=== PATIENT | male | born 1950 | race African-American/Black ===

== ENCOUNTER 2020-01-25 16:37 | Inpatient (IN) | payer MEDICARE, MEDICAID ==
[~2020-01-25] VITALS: Ht 185.4 cm; Wt 60.3 kg
--- NOTE | 2020-01-25 16:59 | NUR ---
ED Nurse Note: Patient was wheeled in to ER from the car, c/o lower back and neck pain, stated fell out of his wheelchair today. Pt is AOx4, consistency screaming in pain, VSS, on RA, afebrile on triage. Placed on bed, will continue to monitor.
--- NOTE | 2020-01-25 17:00 | NUR ---
ED Nurse Note: cervical collar in placed.
[2020-01-25] MEDS ORDERED: Morphine Sulfate 2mg/ml Inj(IV/IM USE ONLY) IM ONE (17:15)
--- NOTE | 2020-01-25 17:22 | NUR ---
ED Nurse Note: Pt was taken to CT on stable condition.
[2020-01-25 17:23] VITALS: BP 156/67
--- NOTE | 2020-01-25 17:48 | Diagnostic Imaging Report ---
EXAM: CT Head Without Intravenous Contrast CLINICAL HISTORY: FALL TECHNIQUE: Axial computed tomography images of the head/brain without intravenous contrast. CTDI is 53.4 mGy and DLP is 950.7 mGy-cm. One or more of the following dose reduction techniques were used: automated exposure control, adjustment of the mA and/or kV according to patient size, use of iterative reconstruction technique. COMPARISON: No relevant prior studies available. FINDINGS: Brain: Parenchymal volume loss. Nonspecific white matter hypoattenuation likely secondary to chronic microvascular ischemia. Cerebrovascular ASVD. No hemorrhage. Ventricles: Unremarkable. No ventriculomegaly. Bones/joints: Unremarkable. No acute fracture. Soft tissues: Unremarkable. Sinuses: Unremarkable as visualized. No acute sinusitis. Mastoid air cells: Unremarkable as visualized. No mastoid effusion. IMPRESSION: 1. No acute intracranial abnormality. 2. Moderate chronic senescent findings above.
--- NOTE | 2020-01-25 17:51 | Diagnostic Imaging Report ---
EXAM: CT Cervical Spine Without Intravenous Contrast CLINICAL HISTORY: FALL TECHNIQUE: Axial computed tomography images of the cervical spine without intravenous contrast. CTDI is 19.8 mGy and DLP is 470.4 mGy-cm. One or more of the following dose reduction techniques were used: automated exposure control, adjustment of the mA and/or kV according to patient size, use of iterative reconstruction technique. Coronal and sagittal reformatted images were created and reviewed. Axial reformatted images were created and reviewed. COMPARISON: No relevant prior studies available. FINDINGS: Vertebrae: Likely degenerative. Minimal grade 1 anterolisthesis C2 on C3 0.3 cm. Mild kyphosis cervical spine. No acute fracture. Discs/spinal canal/neural foramina: Osteopenia and multilevel age- related degenerative spine findings limit evaluation for small and nondisplaced fractures. Degenerative fusion C4-C6. No spinal canal stenosis. Soft tissues: Unremarkable. Lung apices: Right apical mild tree-in-bud nodularity could represent an infectious or inflammatory bronchiolitis, recommend nonemergent unenhanced CT chest to evaluate for additional nodules. Other findings: No acute traumatic osseous injury identified. IMPRESSION: 1. Osteopenia and multilevel age-related degenerative spine findings limit evaluation for small and nondisplaced fractures. 2. No acute traumatic osseous injury identified. 3. If there is continued concern for occult fracture, recommend MRI. 4. Likely degenerative minimal grade 1 anterolisthesis C2 on C3 of 0.3 cm. 5. Degenerative fusion C4-C6. 6. Mild kyphosis cervical spine. 7. Right apical mild tree-in-bud nodularity could represent an infectious or inflammatory bronchiolitis, recommend nonemergent unenhanced CT chest to evaluate for additional nodules.
--- NOTE | 2020-01-25 18:09 | Diagnostic Imaging Report ---
EXAM: CT Thoracic Spine Without Intravenous Contrast CLINICAL HISTORY: FALL TECHNIQUE: Axial computed tomography images of the thoracic spine without intravenous contrast. CTDI is 5.00 mGy and DLP is 279.1 mGy-cm. One or more of the following dose reduction techniques were used: automated exposure control, adjustment of the mA and/or kV according to patient size, use of iterative reconstruction technique. Coronal and sagittal reformatted images were created and reviewed. COMPARISON: No relevant prior studies available. FINDINGS: Vertebrae: Osteopenia and multilevel age-related degenerative spine findings limit evaluation for small and nondisplaced fractures. Discs/spinal canal/neural foramina: No acute findings. No spinal canal stenosis. Soft tissues: Unremarkable. Lungs: Extensive right mid and upper lung nodularity and consolidation suggests pneumonia versus less likely pulmonary contusion. Consider aspiration. Other findings: No acute traumatic osseous injury identified. IMPRESSION: 1. Osteopenia and multilevel age-related degenerative spine findings limit evaluation for small and nondisplaced fractures. 2. No acute traumatic osseous injury identified. 3. If there is continued concern for occult fracture, recommend MRI. 4. Extensive right mid and upper lung nodularity and consolidation suggests pneumonia versus less likely pulmonary contusion. Consider aspiration. 5. Recommend follow-up unenhanced CT chest in 3 months to document resolution.
--- NOTE | 2020-01-25 18:14 | Diagnostic Imaging Report ---
EXAM: CT Lumbar Spine Without Intravenous Contrast CLINICAL HISTORY: FALL TECHNIQUE: Axial computed tomography images of the lumbar spine without intravenous contrast. CTDI is 5.0 mGy and DLP is 279.21 mGy-cm. One or more of the following dose reduction techniques were used: automated exposure control, adjustment of the mA and/or kV according to patient size, use of iterative reconstruction technique. Coronal and sagittal reformatted images were created and reviewed. Axial reformatted images were created and reviewed. COMPARISON: No relevant prior studies available. FINDINGS: Vertebrae: Osteopenia and multilevel age-related degenerative spine findings limit evaluation for small and nondisplaced fractures. Discs/spinal canal/neural foramina: No acute findings. No spinal canal stenosis. Soft tissues: Unremarkable. Other findings: No acute traumatic osseous injury identified. IMPRESSION: 1. Osteopenia and multilevel age-related degenerative spine findings limit evaluation for small and nondisplaced fractures. 2. No acute traumatic osseous injury identified. 3. If there is continued concern for occult fracture, recommend MRI.
--- NOTE | 2020-01-25 19:24 | NUR ---
ED Nurse Note: hand off given to althea mc rn.
[2020-01-25 19:29] LABS: HEMATOCRIT 25.2 % (42.0-52.0); HEMOGLOBIN 7.8 G/DL (14.2-18.0); MEAN CORPUSCULAR VOLUME 80 FL (80-99); PLATELET COUNT 524 K/UL (150-450); RED BLOOD COUNT 3.13 M/UL (4.70-6.10); RED CELL DISTRIBUTION WIDTH 19.1 % (11.6-14.8); WHITE BLOOD COUNT 7.3 K/UL (4.8-10.8)
--- NOTE | 2020-01-25 19:30 | NUR ---
ED Nurse Note: received report from Dede MAJOR. pt is calm and resting in bed, vss, nad, blood drawn and sent to lab
[2020-01-25 19:54] LABS: ANION GAP 5 mmol/L (5-15); BLOOD UREA NITROGEN 18 mg/dL (7-18); CALCIUM 8.1 MG/DL (8.5-10.1); CARBON DIOXIDE 27 MMOL/L (21-32); CHLORIDE 109 MMOL/L (98-107); CREATININE 0.9 MG/DL (0.55-1.30); POTASSIUM 4.1 MMOL/L (3.5-5.1); SODIUM 141 MMOL/L (136-145)
[2020-01-25 19:59] LABS: ALANINE AMINOTRANSFERASE 37 U/L (12-78); ALBUMIN 2.2 G/DL (3.4-5.0); ALBUMIN/GLOBULIN RATIO 0.4 (1.0-2.7); ALKALINE PHOSPHATASE 86 U/L (46-116); ASPARTATE AMINO TRANSFERASE 34 U/L (15-37); BILIRUBIN,TOTAL 0.2 MG/DL (0.2-1.0)
--- NOTE | 2020-01-25 20:40 | Emergency Room Report ---
History of Present Illness General Chief Complaint: Lower Back Pain or Injury Source: Patient Present Illness HPI 69-year-old male presents to ED for evaluation. Brought in by ornamental metal erector from boarding care facility. Patient normally wheelchair-bound and fell from his wheelchair today. Complaining of neck and back pain. Pain is 10 out of 10, dull, nonradiating. Denies any other injuries. No other aggravating relieving factors. Denies any other associated symptoms Allergies: Coded Allergies: ACETAMINOPHEN (Verified Allergy, Unknown, 01/25/20) COVID-19 Screening Contact w/high risk pt: No Experienced COVID-19 symptoms?: No COVID-19 Testing performed SUPERVISOR DIAGNOSTIC: No Patient History Past Medical History: HTN Past Surgical History: none Pertinent Family History: none Social History: Denies: smoking, alcohol use, drug use Immunizations: UTD Reviewed Nursing Documentation: PMH: Agreed; PSxH: Agreed Nursing Documentation-PMH Hx Hypertension: Yes Review of Systems All Other Systems: negative except mentioned in HPI Physical Exam Vital Signs Date Time Temp Pulse Resp B/P (MAP) Pulse Ox O2 Delivery O2 Flow Rate FiO2 01/25/20 16:55 97.9 93 20 156/67 (96) 96 Room Air Sp02 EP Interpretation: reviewed, normal General Appearance: no apparent distress, alert, GCS 15, non-toxic Head: normocephalic, atraumatic Eyes: bilateral eye normal inspection, bilateral eye PERRL ENT: hearing grossly normal, normal pharynx, no angioedema, normal voice Neck: full range of motion, supple/symm/no masses, tender midline Respiratory: chest non-tender, lungs clear, normal breath sounds, speaking full sentences Cardiovascular #1: regular rate, rhythm, no edema Cardiovascular #2: 2+ carotid (R), 2+ carotid (L), 2+ radial (R), 2+ radial (L), 2+ dorsalis pedis (R), 2+ dorsalis pedis (L) Gastrointestinal: normal bowel sounds, non tender, soft, non-distended, no guarding, no rebound Rectal: deferred Genitourinary: normal inspection, no CVA tenderness, vertebral tenderness Musculoskeletal: tender Neurologic: alert, motor strength/tone normal, oriented x3, sensory intact, responsive, speech normal Psychiatric: judgement/insight normal, memory normal, mood/affect normal, no suicidal/homicidal ideation Reflexes: 3+ bicep (R), 3+ bicep (L), 3+ tricep (R), 3+ tricep (L), 3+ knee (R), 3+ knee (L) Skin: other - See nursing notes Lymphatic: no adenopathy Procedures Critical Care Time Critical Care Time i. I feel this is a highly complex case requiring extensive working including EKG/Rhythm strip, Xray/CT/US, Blood/urine lab work, repeat exams while in ED, and administration of strong opiates/narcotics for pain control, admission to hospital or close patient follow up. Total time: 60 min bedside evaluation and treatment excludes procedures (EKG). Reason for critical care: Intractable pain, unsteady gait, anemia Possible complications: hypotension, hypertension, IA, shock, arrhythmias, metabolic acidosis, end organ damage, respiratory failure. Interventions: Pain meds, CT head C-spine T-spine and L-spine. Cervical collar. Continued pain meds. Discussion with PMD. Blood transfusion Course: Patient presenting with neck and back pain status post fall from wheelchair. CT head, T-spine, L-spine, C-spine show no acute process, significant degenerative changes. Patient continues to have significant pain. Spoke with PMD. Patient is prone to frequent falls and is not safe for discharge at this time. Hemoglobin 7.8, hematocrit 25.2. Vital stable. Blood transfusion ordered Consultations: nursing staff, EMS, family Performed by: Dr Dawn Tolerated well condition = serious j. because of unstable vital signs this patient had a condition that could potentially threaten life or limb. I feel this is a critical patient who required my full attention while patient was considered critical. Total Critical Care Time excluding procedures was greater than 60 minutes Medical Decision Making Diagnostic Impression: Primary Impression: Anemia Qualified Codes: D64.9 - Anemia, unspecified Additional Impressions: Unsteady gait Frequent falls ER Course Hospital Course 69-year-old male presents with neck and back pain status post fall from wheelchair Differential diagnoses include: fracture, dislocation, contusion clinical course Patient placed on stretcher. After initial history and physical I ordered pain meds, CT head T-spine C-spine L-spine CT showed no acute process. Significant degenerative changes. Patient still has significant pain. I spoke to PMD. Patient is prone to frequent falls and cannot be safely discharged back to facility. We will admit Labs- Hb 7.8/25.2, no leukocytosis, electrolytes okay IV hydration continued. Pain meds given. Blood transfusion ordered patient admitted to Dr Hayes Diagnosis - anemia, unsteady gait, frequent falls Admitted to floor in serious condition Laboratory Tests Test 01/25/20 19:20 White Blood Count 7.3 K/UL (4.8-10.8) Red Blood Count 3.13 M/UL (4.70-6.10) L Hemoglobin 7.8 G/DL (14.2-18.0) L Hematocrit 25.2 % (42.0-52.0) L Mean Corpuscular Volume 80 FL (80-99) Mean Corpuscular Hemoglobin 24.9 PG (27.0-31.0) L Mean Corpuscular Hemoglobin Concent 30.9 G/DL (32.0-36.0) L Red Cell Distribution Width 19.1 % (11.6-14.8) H Platelet Count 524 K/UL (150-450) H Mean Platelet Volume 7.2 FL (6.5-10.1) Neutrophils (%) (Auto) % (45.0-75.0) Lymphocytes (%) (Auto) % (20.0-45.0) Monocytes (%) (Auto) % (1.0-10.0) Eosinophils (%) (Auto) % (0.0-3.0) Basophils (%) (Auto) % (0.0-2.0) Neutrophils % (Manual) Pending Lymphocytes % (Manual) Pending Platelet Estimate Pending Platelet Morphology Pending Prothrombin Time 11.1 SEC (9.30-11.50) Prothromb Time International Ratio 1.0 (0.9-1.1) Activated Partial Thromboplast Time 27 SEC (23-33) Sodium Level 141 MMOL/L (136-145) Potassium Level 4.1 MMOL/L (3.5-5.1) Chloride Level 109 MMOL/L (98-107) H Carbon Dioxide Level 27 MMOL/L (21-32) Anion Gap 5 mmol/L (5-15) Blood Urea Nitrogen 18 mg/dL (7-18) Creatinine 0.9 MG/DL (0.55-1.30) Estimat Glomerular Filtration Rate > 60 mL/min (>60) Glucose Level 98 MG/DL (74-106) Calcium Level 8.1 MG/DL (8.5-10.1) L Total Bilirubin 0.2 MG/DL (0.2-1.0) Aspartate Amino Transf (AST/SGOT) 34 U/L (15-37) Alanine Aminotransferase (ALT/SGPT) 37 U/L (12-78) Alkaline Phosphatase 86 U/L (46-116) Total Protein 7.3 G/DL (6.4-8.2) Albumin 2.2 G/DL (3.4-5.0) L Globulin 5.1 g/dL Albumin/Globulin Ratio 0.4 (1.0-2.7) L CT/MRI/US Diagnostic Results CT/MRI/US Diagnostic Results #1: Imaging Test Ordered: CT Head Impression Procedure: CT Head no Contrast EXAM: CT Head Without Intravenous Contrast CLINICAL HISTORY: FALL TECHNIQUE: Axial computed tomography images of the head/brain without intravenous contrast. CTDI is 53.4 mGy and DLP is 950.7 mGy-cm. One or more of the following dose reduction techniques were used: automated exposure control, adjustment of the mA and/or kV according to patient size, use of iterative reconstruction technique. COMPARISON: No relevant prior studies available. FINDINGS: Brain: Parenchymal volume loss. Nonspecific white matter hypoattenuation likely secondary to chronic microvascular ischemia. Cerebrovascular ASVD. No hemorrhage. Ventricles: Unremarkable. No ventriculomegaly. Bones/joints: Unremarkable. No acute fracture. Soft tissues: Unremarkable. Sinuses: Unremarkable as visualized. No acute sinusitis. Mastoid air cells: Unremarkable as visualized. No mastoid effusion. IMPRESSION: 1. No acute intracranial abnormality. 2. Moderate chronic senescent findings above. CT/MRI/US Diagnostic Results #2: Imaging Test Ordered: CT C spine Impression rocedure: CT C Spine no Contrast EXAM: CT Cervical Spine Without Intravenous Contrast CLINICAL HISTORY: FALL TECHNIQUE: Axial computed tomography images of the cervical spine without intravenous contrast. CTDI is 19.8 mGy and DLP is 470.4 mGy-cm. One or more of the following dose reduction techniques were used: automated exposure control, adjustment of the mA and/or kV according to patient size, use of iterative reconstruction technique. Coronal and sagittal reformatted images were created and reviewed. Axial reformatted images were created and reviewed. COMPARISON: No relevant prior studies available. FINDINGS: Vertebrae: Likely degenerative. Minimal grade 1 anterolisthesis C2 on C3 0.3 cm. Mild kyphosis cervical spine. No acute fracture. Discs/spinal canal/neural foramina: Osteopenia and multilevel age- related degenerative spine findings limit evaluation for small and nondisplaced fractures. Degenerative fusion C4-C6. No spinal canal stenosis. Soft tissues: Unremarkable. Lung apices: Right apical mild tree-in-bud nodularity could represent an infectious or inflammatory bronchiolitis, recommend nonemergent unenhanced CT chest to evaluate for additional nodules. Other findings: No acute traumatic osseous injury identified. IMPRESSION: 1. Osteopenia and multilevel age-related degenerative spine findings limit evaluation for small and nondisplaced fractures. 2. No acute traumatic osseous injury identified. 3. If there is continued concern for occult fracture, recommend MRI. 4. Likely degenerative minimal grade 1 anterolisthesis C2 on C3 of 0.3 cm. 5. Degenerative fusion C4-C6. 6. Mild kyphosis cervical spine. 7. Right apical mild tree-in-bud nodularity could represent an infectious or inflammatory bronchiolitis, recommend nonemergent unenhanced CT chest to evaluate for additional nodules. CT/MRI/US Diagnostic Results #3: Imaging Test Ordered: CT T spine Impression Procedure: CT T Spine no Contrast EXAM: CT Thoracic Spine Without Intravenous Contrast CLINICAL HISTORY: FALL TECHNIQUE: Axial computed tomography images of the thoracic spine without intravenous contrast. CTDI is 5.00 mGy and DLP is 279.1 mGy-cm. One or more of the following dose reduction techniques were used: automated exposure control, adjustment of the mA and/or kV according to patient size, use of iterative reconstruction technique. Coronal and sagittal reformatted images were created and reviewed. COMPARISON: No relevant prior studies available. FINDINGS: Vertebrae: Osteopenia and multilevel age-related degenerative spine findings limit evaluation for small and nondisplaced fractures. Discs/spinal canal/neural foramina: No acute findings. No spinal canal stenosis. Soft tissues: Unremarkable. Lungs: Extensive right mid and upper lung nodularity and consolidation suggests pneumonia versus less likely pulmonary contusion. Consider aspiration. Other findings: No acute traumatic osseous injury identified. IMPRESSION: 1. Osteopenia and multilevel age-related degenerative spine findings limit evaluation for small and nondisplaced fractures. 2. No acute traumatic osseous injury identified. 3. If there is continued concern for occult fracture, recommend MRI. 4. Extensive right mid and upper lung nodularity and consolidation suggests pneumonia versus less likely pulmonary contusion. Consider aspiration. 5. Recommend follow-up unenhanced CT chest in 3 months to document resolution. CT/MRI/US Diagnostic Results #4: Imaging Test Ordered: CT L spine Impression Procedure: CT L Spine no Contrast EXAM: CT Lumbar Spine Without Intravenous Contrast CLINICAL HISTORY: FALL TECHNIQUE: Axial computed tomography images of the lumbar spine without intravenous contrast. CTDI is 5.0 mGy and DLP is 279.21 mGy-cm. One or more of the following dose reduction techniques were used: automated exposure control, adjustment of the mA and/or kV according to patient size, use of iterative reconstruction technique. Coronal and sagittal reformatted images were created and reviewed. Axial reformatted images were created and reviewed. COMPARISON: No relevant prior studies available. FINDINGS: Vertebrae: Osteopenia and multilevel age-related degenerative spine findings limit evaluation for small and nondisplaced fractures. Discs/spinal canal/neural foramina: No acute findings. No spinal canal stenosis. Soft tissues: Unremarkable. Other findings: No acute traumatic osseous injury identified. IMPRESSION: 1. Osteopenia and multilevel age-related degenerative spine findings limit evaluation for small and nondisplaced fractures. 2. No acute traumatic osseous injury identified. 3. If there is continued concern for occult fracture, recommend MRI. Last Vital Signs Date Time Temp Pulse Resp B/P (MAP) Pulse Ox O2 Delivery O2 Flow Rate FiO2 01/25/20 19:00 97.9 01/25/20 17:23 20 156/67 96 Room Air 01/25/20 16:55 93 Status: improved Disposition: ADMITTED INPATIENT Condition: Serious Referrals: Ben Hayes MD (PCP) Juanito Dawn MD Jan 25, 2020 20:40
[2020-01-25] MEDS ORDERED: Ketorolac 30mg Inj IV ONE (20:45)
[2020-01-25] MEDS ORDERED: Morphine Sulfate 4mg/ml Inj (IV USE ONLY) IVP ONE (20:45)
--- NOTE | 2020-01-25 22:10 | NUR ---
ED Nurse Note: 2155: initiated blood transfusion with stable vs (see intervention) 2210: 15 min post transfusion assessment done with stable vs (see intervention), no reaction observed.
--- NOTE | 2020-01-26 00:08 | NUR ---
ED Nurse Note: gave report to Jose MAJOR
--- NOTE | 2020-01-26 00:25 | NUR ---
TRANSFER TO FLOOR: Patient transferred to [facility] via gurney in stable condition as ordered, per dr. Hayes. Report given to Jose mancini. Belongings sent with patient
[2020-01-26 01:00] VITALS: BP 137/85
--- NOTE | 2020-01-26 01:00 | NUR ---
NURSE NOTES: Pt is admitted from ER in stable condition, vitals stable. Pt is awake and alert. Pt uses wheelchair at the boarding care. Pt was transfused 1 unit of blood in ER and another unit will be given as soon as possible. No reactions noted. Pt states that he fell out of wheelchair at the boarding care, he complains of back and neck pain 10/07. Dr. Hayes will be called for admission orders. Pt has pressure ulcers in left trochanter.Pt oriented to the room. Fall precaution in place, bed alarm on, call light within reach. Pt instructed to call before getting out of bed. Pt will be monitored. Addendum: 01/26/20 at 0149 by NIDIA CALDERON RN RN Report received from ER nurse Zbigniew Hein RN.
--- NOTE | 2020-01-26 02:05 | NUR ---
NURSE NOTES: Pt is unable to name the boarding care he is from and can not tell which medications he takes. He says he has history of hypertension. He also states that he takes pain medication but can not name the medication.
--- NOTE | 2020-01-26 02:40 | NUR ---
NURSE NOTE: 2nd unit of PRBC started. Dr. Hayes is called for admission orders. Awaiting call back. Pt is calm in bed now. No adverse reactions noted.
[2020-01-26 04:00] VITALS: BP 133/82
--- NOTE | 2020-01-26 04:40 | NUR ---
NURSE NOTES: 2nd unit of PRBC transfusion completed, Vitas stable. No adverse reactions noted.
--- NOTE | 2020-01-26 07:00 | NUR ---
NURSE NOTES: Dr. Hayes called back with admitting orders, orders entered in the system. Endorsed to Madalyn to carry out the orders.
--- NOTE | 2020-01-26 07:10 | NUR ---
NURSE NOTES: Received report from Jose RN, rounds made , pt is A/ox4 , breaths regular unlabored on RA, c/o pain 8 of the back will provide medication as ordered, pt as Lt hand 20 locked , pt is a fall precaution, bed alarm on , side rails upX2, bed in low locked position, will continue to monitor
--- NOTE | 2020-01-26 07:52 | NUR ---
NURSE HAND-OFF: Important Events on Shift:[S/P 2 units PRBC] Patient Status: [Stable] Diet: [REGULAR] Pending Orders: [] Pending Results/Labs:[STOOL OB, CBC, CMP, POS, MG] Pending MD notification:[] Latest Vital Signs: Temperature 97.7 , Pulse 91 , B/P 133 /82 , Respiratory Rate 18 , O2 SAT 99 , Room Air, O2 Flow Rate . Vital Sign Comment: [] Latest Ramirez Fall Score: 80 Fall Risk: High Risk Safety Measures: Call light Within Reach, Bed Alarm Zone 1, Side Rails Side Rails x2, Bed position Low and Locked. Fall Precautions: Yellow Socks Yellow Gown Door Sign Patient Fall Education Report given to [PEDRITO Bergman, informed that patient is high fall risk. ].
[2020-01-26] MEDS: Morphine Sulfate 2mg/ml Inj(IV/IM USE ONLY) IVP PRN ×2 (07:58→14:55)
[2020-01-26 08:00] VITALS: BP 142/77
[2020-01-26 08:47] LABS: BASOPHILS % (AUTO) 1.6 % (0.0-2.0); EOSINOPHILS % (AUTO) 2.3 % (0.0-3.0); LYMPHOCYTES % (AUTO) 22.5 % (20.0-45.0); MEAN CORPUSCULAR VOLUME 80 FL (80-99); MONOCYTES % (AUTO) 10.1 % (1.0-10.0); NEUTROPHILS % (AUTO) 63.5 % (45.0-75.0); PLATELET COUNT 519 K/UL (150-450); RED BLOOD COUNT 3.49 M/UL (4.70-6.10); WHITE BLOOD COUNT 6.1 K/UL (4.8-10.8)
[2020-01-26 08:49] LABS: HEMOGLOBIN 9.2 G/DL (14.2-18.0)
[2020-01-26 08:56] LABS: ALANINE AMINOTRANSFERASE 27 U/L (12-78); ALBUMIN/GLOBULIN RATIO 0.4 (1.0-2.7); ALKALINE PHOSPHATASE 80 U/L (46-116); ASPARTATE AMINO TRANSFERASE 32 U/L (15-37); BILIRUBIN,TOTAL 0.4 MG/DL (0.2-1.0); BLOOD UREA NITROGEN 19 mg/dL (7-18); CALCIUM 8.3 MG/DL (8.5-10.1); CARBON DIOXIDE 31 MMOL/L (21-32); CHLORIDE 111 MMOL/L (98-107); CREATININE 0.9 MG/DL (0.55-1.30); PHOSPHORUS 3.6 MG/DL (2.5-4.9); POTASSIUM 4.2 MMOL/L (3.5-5.1); SODIUM 145 MMOL/L (136-145)
[2020-01-26] MEDS ORDERED: Tubing Blood Filter IV ONE (09:01)
[2020-01-26] MEDS ORDERED: NS 275ml ONE (09:01)
[2020-01-26 12:00] VITALS: BP 132/86
--- NOTE | 2020-01-26 14:37 | History & Physical ---
History and Physical History & Physicial Dictated for Int Med - Dr Hayes no. [id number] Mitch Ambriz MD Jan 26, 2020 14:37
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
[2020-01-26 16:00] VITALS: BP 125/90
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
--- NOTE | 2020-01-26 19:10 | NUR ---
NURSE NOTES: Received report from PEDRITO Bergman. Pt sleeping in bed, on room air. IV site intact and patent. Wound dressing d/c/i. OB stool uncollected. Awaiting call back from Jesica from [facility] for paper packet. No acute distress noted. Bed locked, lowest position, alarm on, side rails up, call light within reach. Will continue to monitor.
--- NOTE | 2020-01-26 19:20 | NUR ---
NURSE HAND-OFF: Important Events on Shift:pain management Patient Status: stable Diet: regular Pending Orders: Pending Results/Labs: Pending MD notification: Latest Vital Signs: Temperature 98.8 , Pulse 79 , B/P 125 /90 , Respiratory Rate 18 , O2 SAT 100 , Room Air, O2 Flow Rate . Vital Sign Comment: Latest Ramirez Fall Score: 80 Fall Risk: High Risk Safety Measures: Call light Within Reach, Bed Alarm Zone 2, Side Rails Side Rails x2, Bed position Low and Locked. Fall Precautions: Yellow Socks Yellow Gown Patient Fall Education Report given to Sharon MAJOR .
[2020-01-26 20:00] VITALS: BP 133/85
[2020-01-27] VITALS: BP 135/83
[2020-01-27] MEDS: Morphine Sulfate 2mg/ml Inj(IV/IM USE ONLY) IVP PRN ×2 (00:12→13:11)
[2020-01-27 04:00] VITALS: BP 135/86
--- NOTE | 2020-01-27 06:00 | NUR ---
NURSE NOTES: AM nurse said pt came from [facility] and [facility]. RN tried to contact the facility to get paper packet but Pt doesn't remember the name or phone number of [facility] and [facility] where he came from. Also doesn't remember any meds he took.
--- NOTE | 2020-01-27 06:19 | NUR ---
NURSE HAND-OFF: Important Events on Shift:pain, awaiting call back from [facility] for paper packet Patient Status: stable5 Diet: reg Pending Orders: Pending Results/Labs:am labs Pending MD notification: Latest Vital Signs: Temperature 98.6 , Pulse 88 , B/P 135 /86 , Respiratory Rate 18 , O2 SAT 97 , Room Air, O2 Flow Rate . Vital Sign Comment: Latest Ramirez Fall Score: 80 Fall Risk: High Risk Safety Measures: Call light Within Reach, Bed Alarm Zone 2, Side Rails Side Rails x2, Bed position Low and Locked. Fall Precautions: Yellow Socks Yellow Gown Patient Fall Education Addendum: 01/27/20 at 0731 by SINCERE ELLIOTT RN RN HAND-OFF: Report given to Shahnaz.
--- NOTE | 2020-01-27 07:45 | NUR ---
NURSE NOTES: Received report from PEDRITO Herrera. Pt awake in bed, on room air. No respiratory distress noted. Denies pain at this time. IV site intact and patent. Wound dressing d/c/i. OB stool uncollected. No home medication list, unable to get the name of SNF pt came from. Bed locked, lowest position, alarm on, side rails up, call light within reach. Will continue to monitor.
[2020-01-27 08:00] VITALS: BP 127/83
[2020-01-27 09:13] LABS: BASOPHILS % (AUTO) 1.5 % (0.0-2.0); EOSINOPHILS % (AUTO) 1.5 % (0.0-3.0); HEMATOCRIT 28.3 % (42.0-52.0); HEMOGLOBIN 9.4 G/DL (14.2-18.0); LYMPHOCYTES % (AUTO) 22.3 % (20.0-45.0); MEAN CORPUSCULAR VOLUME 79 FL (80-99); MONOCYTES % (AUTO) 8.2 % (1.0-10.0); NEUTROPHILS % (AUTO) 66.4 % (45.0-75.0); PLATELET COUNT 540 K/UL (150-450); RED BLOOD COUNT 3.56 M/UL (4.70-6.10); RED CELL DISTRIBUTION WIDTH 20.1 % (11.6-14.8); WHITE BLOOD COUNT 7.7 K/UL (4.8-10.8)
[2020-01-27 09:38] LABS: ANION GAP 4 mmol/L (5-15); BLOOD UREA NITROGEN 20 mg/dL (7-18); CALCIUM 8.1 MG/DL (8.5-10.1); CARBON DIOXIDE 28 MMOL/L (21-32); CHLORIDE 110 MMOL/L (98-107); CREATININE 0.8 MG/DL (0.55-1.30); POTASSIUM 4.1 MMOL/L (3.5-5.1); SODIUM 142 MMOL/L (136-145)
[2020-01-27 09:45] LABS: % IRON SATURATION 7 % (15-50); IRON 17 ug/dL (50-175); TOTAL IRON BINDING CAPACITY 255 ug/dL (250-450)
[2020-01-27 12:00] VITALS: BP 131/79
--- NOTE | 2020-01-27 12:40 | NUR ---
RD ASSESSMENT & RECOMMENDATIONS SEE CARE ACTIVITY FOR COMPLETE ASSESSMENT DAILY ESTIMATED NEEDS: Needs based on underweight, skin integrity 63.3kg 30-35 kcals/kg 8861-4785 total kcals 1.25-1.5 g protein/kg 79-95 g total protein 25-30 mL/kg 2230-5455 total fluid mLs NUTRITION DIAGNOSIS: Increased kcal and pro needs r/t underweight status and skin integrity as evidenced by pt is 76% of [place] Body weight, lower extremity alterations in skin integrity, eval pending. CURRENT DIET: regular PO DIET RECOMMENDATIONS: Regular diet as tolerated ADDITIONAL RECOMMENDATIONS: 1) Obtain a calibrated bed scale weight 2) Consider added D5; BG borderline low (70) 3) rec WC eval 4) Add Ensure Enlive BID + snacks in b/w meals 5) Regular BG checks for hypoglycemia
--- NOTE | 2020-01-27 15:52 | Internal Med Progress Note ---
Subjective Date of Service: Jan 27, 2020 Physician Name Mitch Ambriz Attending Physician Ben Hayes MD Current Medications Medications (Trade) Dose Ordered Sig/Soledad Route PRN Reason Start Time Stop Time Status Last Admin Dose Admin Morphine Sulfate (Morphine Sulfate) 2 mg Q4H PRN IVP For Pain 01/26/20 07:00 02/02/20 06:59 01/27/20 13:11 Allergies: Coded Allergies: ACETAMINOPHEN (Verified Allergy, Unknown, 01/25/20) IBUPROFEN (Verified Allergy, Unknown, 01/26/20) ROS Limited/Unobtainable: No Constitutional: Reports: no symptoms HEENT: Reports: no symptoms Cardiovascular: Reports: no symptoms Respiratory: Reports: no symptoms Gastrointestinal/Abdominal: Reports: no symptoms Genitourinary: Reports: no symptoms Neurologic/Psychiatric: Reports: no symptoms Subjective 69 YO M admitted with back and neck pain. Now Severe anemia. Cover for Int med-Dr Hayes Objective Last Vital Signs Date Time Temp Pulse Resp B/P (MAP) Pulse Ox O2 Delivery O2 Flow Rate FiO2 01/27/20 13:41 97.5 01/27/20 12:00 76 18 131/79 (96) 98 01/27/20 09:00 Room Air Laboratory Tests Test 01/27/20 08:45 White Blood Count 7.7 K/UL (4.8-10.8) Red Blood Count 3.56 M/UL (4.70-6.10) L Hemoglobin 9.4 G/DL (14.2-18.0) L Hematocrit 28.3 % (42.0-52.0) L Mean Corpuscular Volume 79 FL (80-99) L Mean Corpuscular Hemoglobin 26.5 PG (27.0-31.0) L Mean Corpuscular Hemoglobin Concent 33.3 G/DL (32.0-36.0) Red Cell Distribution Width 20.1 % (11.6-14.8) H Platelet Count 540 K/UL (150-450) H Mean Platelet Volume 7.2 FL (6.5-10.1) Neutrophils (%) (Auto) 66.4 % (45.0-75.0) Lymphocytes (%) (Auto) 22.3 % (20.0-45.0) Monocytes (%) (Auto) 8.2 % (1.0-10.0) Eosinophils (%) (Auto) 1.5 % (0.0-3.0) Basophils (%) (Auto) 1.5 % (0.0-2.0) Sodium Level 142 MMOL/L (136-145) Potassium Level 4.1 MMOL/L (3.5-5.1) Chloride Level 110 MMOL/L (98-107) H Carbon Dioxide Level 28 MMOL/L (21-32) Anion Gap 4 mmol/L (5-15) L Blood Urea Nitrogen 20 mg/dL (7-18) H Creatinine 0.8 MG/DL (0.55-1.30) Estimat Glomerular Filtration Rate > 60 mL/min (>60) Glucose Level 70 MG/DL (74-106) L Calcium Level 8.1 MG/DL (8.5-10.1) L Iron Level 17 ug/dL (50-175) L Total Iron Binding Capacity 255 ug/dL (250-450) Percent Iron Saturation 7 % (15-50) L Unsaturated Iron Binding 238 ug/dL (112-346) Intake and Output 01/26/20 01/27/20 19:00 07:00 Intake Total 800 ml Balance 800 ml Intake Oral 800 ml # Voids 3 # Bowel Movements 1 Objective PHYSICAL EXAMINATION: GENERAL: The patient is a thin-appearing male, who appears older than his stated age. HEENT: Eyes, pupils equal and responsive to light and accommodation. Extraocular movements are intact. NECK: Supple without lymphadenopathy. CHEST: Lungs are clear to auscultation bilaterally without wheezes or rales. CARDIOVASCULAR: Regular rate. S1, S2 are normal without murmurs, rubs, or gallops. ABDOMEN: Soft, nontender, and nondistended. Positive bowel sounds. No evidence of hepatosplenomegaly. Currently no rebound or guarding noted. EXTREMITIES: Negative for clubbing, cyanosis, or edema. RECTAL/GENITAL: Not performed. NEUROLOGIC: Cranial nerves II through XII are grossly intact without focal deficits. Motor strength is 5/5 bilaterally. Deep tendon reflexes are 2+ plantar. Assessment/Plan Assessment/Plan ASSESSMENT: This is a 69-year-old male. 1. Severe anemia. 2. Cervical spine pain. 3. Thoracic spine pain. 4. Lumbar spine pain. 5. Hypertension. 6. Functional paraplegia. TREATMENT: 1. Severe anemia. S/P transfusion 2 units of packed RBCs. An iron function panel is pending. A gastroenterology consultation has been obtained with Dr. Diaz Taylor. Differential includes gastrointestinal hemorrhage versus iron deficiency. Follow recommendations of Gastroenterology. 2. Cervical/thoracic/lumbar spine pain. The patient is currently requesting dilaudid (see allergies above) 3. Hypertension. Continue clonidine p.r.n. Mitch Ambriz MD Jan 27, 2020 15:52
[2020-01-27 16:00] VITALS: BP 121/81
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
--- NOTE | 2020-01-27 19:14 | NUR ---
NURSE HAND-OFF: Important Events on Shift:[unable to get information of SNF pt came from and home med list, Pain management.] Patient Status: [stable] Diet: [reg] Pending Orders: [] Pending Results/Labs:[] Pending MD notification:[] Latest Vital Signs: Temperature 97.5 , Pulse 78 , B/P 121 /81 , Respiratory Rate 18 , O2 SAT 98 , Room Air, O2 Flow Rate . Vital Sign Comment: [stable] Latest Ramirez Fall Score: 80 Fall Risk: High Risk Safety Measures: Call light Within Reach, Bed Alarm Zone 2, Side Rails Side Rails x2, Bed position Low and Locked. Fall Precautions: Yellow Socks Yellow Gown Patient Fall Education Report given to [PEDRITO Herrera].
--- NOTE | 2020-01-27 19:15 | NUR ---
NURSE NOTES: Received report from PEDRITO Christie. Pt AAO x 4, on room air. IV site intact and patent. Wound dressing d/c/i. OB stool uncollected. Pt c/o pain 7/10 on neck and back. No acute distress noted. Bed locked, lowest position, alarm on, side rails up, call light within reach. Will continue to monitor.
[2020-01-27 20:00] VITALS: BP 132/88
[2020-01-28] VITALS: BP 121/89
[2020-01-28 04:00] VITALS: BP 146/103
--- NOTE | 2020-01-28 06:55 | NUR ---
NURSE HAND-OFF: Important Events on Shift:pain Patient Status: stable Diet: reg Pending Orders: Pending Results/Labs:am labs Pending MD notification: Latest Vital Signs: Temperature 98.1 , Pulse 85 , B/P 146 /103 , Respiratory Rate 17 , O2 SAT 98 , Room Air, O2 Flow Rate . Vital Sign Comment: [] Latest Ramirez Fall Score: 80 Fall Risk: High Risk Safety Measures: Call light Within Reach, Bed Alarm Zone 2, Side Rails Side Rails x2, Bed position Low and Locked. Fall Precautions: Yellow Socks Yellow Gown Patient Fall Education Addendum: 01/28/20 at 0734 by SINCERE ELLIOTT RN RN HAND-OFF: Report given to Brina.
--- NOTE | 2020-01-28 07:43 | NUR ---
NURSE NOTES: Received report from PEDRITO Herrera. Patient is in bed, awake and oriented x 3-4, no SOB, bed in lowest position with breaks engaged and alarm on, no pain or discomfort per assessment, IV line present, on room air, will continue to monitor and proceed with plan of care, call light within reach
[2020-01-28 08:00] VITALS: BP 127/87
[2020-01-28 10:32] LABS: BASOPHILS % (AUTO) 1.7 % (0.0-2.0); EOSINOPHILS % (AUTO) 1.6 % (0.0-3.0); HEMATOCRIT 28.5 % (42.0-52.0); LYMPHOCYTES % (AUTO) 26.6 % (20.0-45.0); MEAN CORPUSCULAR VOLUME 82 FL (80-99); MONOCYTES % (AUTO) 9.7 % (1.0-10.0); NEUTROPHILS % (AUTO) 60.4 % (45.0-75.0); PLATELET COUNT 545 K/UL (150-450); RED BLOOD COUNT 3.48 M/UL (4.70-6.10); RED CELL DISTRIBUTION WIDTH 19.1 % (11.6-14.8); WHITE BLOOD COUNT 9.2 K/UL (4.8-10.8)
[2020-01-28 10:46] LABS: ANION GAP 4 mmol/L (5-15); BLOOD UREA NITROGEN 20 mg/dL (7-18); CALCIUM 7.8 MG/DL (8.5-10.1); CARBON DIOXIDE 30 MMOL/L (21-32); CHLORIDE 105 MMOL/L (98-107); CREATININE 0.9 MG/DL (0.55-1.30); SODIUM 139 MMOL/L (136-145)
--- NOTE | 2020-01-28 10:55 | NUR ---
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
[2020-01-28] MEDS: HYDROmorphone 1mg/ml Carpuject IVP PRN ×2 (11:52→16:28)
[2020-01-28 12:00] VITALS: BP 138/93
--- NOTE | 2020-01-28 12:00 | Consultation ---
DATE OF CONSULTATION: 01/28/2020 GASTROENTEROLOGY CONSULTATION CONSULTING PHYSICIAN: Diaz Taylor MD. REFERRING PHYSICIAN: Ben Hayes MD. CHIEF COMPLAINT: Anemia. HISTORY OF PRESENT ILLNESS: This is a 69-year-old male, who lives in a longterm, who was admitted mainly for back pain and neck pain, was found to be profoundly anemic, so GI consultation requested for further evaluation. According to the patient, he had his last blood transfusion was four years ago. He has not had blood transfusion since then. No prior history of endoscopy, no colonoscopy. He also complained of some weight loss. PAST MEDICAL HISTORY: 1. Hypertension. 2. Paraplegia. ALLERGIES: Acetaminophen and ibuprofen. MEDICATIONS: Please see medication reconciliation list. SOCIAL HISTORY: Currently, the patient lives in a board and care. The patient denies any tobacco, alcohol, or drug abuse. PHYSICAL EXAMINATION: VITAL SIGNS: Temperature is 98.5, pulse 85, respirations 17, blood pressure 127/87. HEENT: Normocephalic and atraumatic. Pale conjunctivae. The patient also has evidence of temporal wasting. NECK: Supple. No evidence of obvious lymphadenopathy. CARDIOVASCULAR: Regular rate and rhythm. Plus S1, S2. LUNGS: Decreased breath sounds bilaterally. ABDOMEN: Soft, nontender. No rebound. No guarding. No peritoneal sign. EXTREMITIES: No cyanosis. No clubbing. LABORATORY DATA: White count is 9.2, hemoglobin 9, hematocrit 28, platelet count is 545,000. Iron is 7% saturation. ASSESSMENT AND PLAN: This is a 69-year-old male with iron deficiency anemia and weight loss. No prior history of endoscopy and colonoscopy, will need an endoscopy and colonoscopy. We will plan for tomorrow. The patient was explained the risks and benefits of procedure and the prep. I want to thank Dr. Hayes for this kind referral. Diaz Taylor M.D. DR: SEVERINO JOB#: [id number] CC:
[2020-01-28] MEDS ORDERED: Golytely 4L ORAL SCH (14:00)
[2020-01-28 16:00] VITALS: BP 135/86
--- NOTE | 2020-01-28 16:04 | NUR ---
CASE MANAGEMENT:INITIAL REVIEW 01/26/20 69 YR OLD MALE FROM HOME CC;LOWER BACK PAIN/INJURY SI;UNSTEADY GAIT. INTRACTABLE BACK PAIN. ANEMIA. 97.9 93 20 156/67 96% ON RA H/H 7.8/25.2 PLT 524 CL 109 ALB 1.[address] ~ 1. Osteopenia and multilevel age-related degenerative spine findings limit evaluation for small and nondisplaced fractures. 2. No acute traumatic osseous injury identified. 3. If there is continued concern for occult fracture, recommend MRI. 4. Likely degenerative minimal grade 1 anterolisthesis C2 on C3 of 0.3 cm. 5. Degenerative fusion C4-C6. 6. Mild kyphosis cervical spine. 7. Right apical mild tree-in-bud nodularity could represent an infectious or inflammatory bronchiolitis, recommend nonemergent unenhanced CT chest to evaluate for additional nodules. HEAD CT ~ 1. No acute intracranial abnormality. 2. Moderate chronic senescent findings above. SPINE CT ~ IMPRESSION: 1. Osteopenia and multilevel age-related degenerative spine findings limit evaluation for small and nondisplaced fractures. 2. No acute traumatic osseous injury identified. 3. If there is continued concern for occult fracture, recommend MRI. 4. Extensive right mid and upper lung nodularity and consolidation suggests pneumonia versus less likely pulmonary contusion. Consider aspiration. IS;MORPHINE IV X2 IVF NS BOLUS TORADOL IV ADMITTED TO MED SURG MED SURG STATUS DCP;PATIENT IS FROM HOME CASE MANAGEMENT:REVIEW 01/28/20 SI;ANEMIA. INTRACTABLE PAIN. 98.5 85 18 146/103 97% ON RA H/H 9.0/28.5 BUN 20 JINNY 7.8 IS;IVF D5W @ 75 ML/HR DILAUDID IV Q4 PRN MED SURG STATUS DCP;FROM HOME
[2020-01-28] MEDS: D5 1/2NS w/KCl 20mEq 1,000 ML IV SCH (16:28)
--- NOTE | 2020-01-28 16:46 | Pulmonology Progress Note ---
Subjective ROS Limited/Unobtainable: No Allergies: Coded Allergies: ACETAMINOPHEN (Verified Allergy, Unknown, 01/25/20) IBUPROFEN (Verified Allergy, Unknown, 01/26/20) Objective Last 24 Hour Vital Signs Date Time Temp Pulse Resp B/P (MAP) Pulse Ox O2 Delivery O2 Flow Rate FiO2 01/28/20 12:22 97.8 01/28/20 12:00 97.8 84 18 138/93 (108) 98 01/28/20 09:00 Room Air 01/28/20 08:00 98.5 85 17 127/87 (100) 98 01/28/20 04:00 98.1 85 17 146/103 (117) 98 01/28/20 00:00 98.2 77 16 121/89 (100) 97 01/27/20 21:00 Room Air 01/27/20 20:00 98.2 80 17 132/88 (103) 97 Intake and Output 01/27/20 01/28/20 19:00 07:00 Intake Total 880 ml 1000 ml Output Total 2300 ml Balance 880 ml -1300 ml Intake Oral 480 ml Other 400 ml 1000 ml Output Urine Total 2300 ml # Voids 2 # Bowel Movements 1 General Appearance: cachetic HEENT: normocephalic, atraumatic Respiratory: chest wall non-tender, rhonchi - left, rhonchi - right Cardiovascular: normal peripheral pulses, normal rate Abdomen: normal bowel sounds, soft, non tender Genitourinary: normal external genitalia Extremities: no clubbing Neurologic: food products tester II-XII grossly normal Microbiology Date/Time Source Procedure Growth Status 01/25/20 20:30 Rectum VRE Culture - Final Enterococcus Faecium - Vre Complete 01/25/20 20:30 Rectum - Final NO CARBAPENEM-RESISTANT ENTEROBACTERI... Complete 01/25/20 20:30 Nasal Nares MRSA Culture - Final NO METHICILLIN RESISTANT STAPH AUREUS... Complete Laboratory Tests 01/28/20 10:00: White Blood Count 9.2, Red Blood Count 3.48L, Hemoglobin 9.0L, Hematocrit 28.5L, Mean Corpuscular Volume 82, Mean Corpuscular Hemoglobin 25.8L, Mean Corpuscular Hemoglobin Concent 31.5L, Red Cell Distribution Width 19.1H, Platelet Count 545H , Mean Platelet Volume 6.4L, Neutrophils (%) (Auto) 60.4, Lymphocytes (%) (Auto) 26.6, Monocytes (%) (Auto) 9.7, Eosinophils (%) (Auto) 1.6, Basophils (%) (Auto) 1.7, Sodium Level 139, Potassium Level 4.0, Chloride Level 105, Carbon Dioxide Level 30, Anion Gap 4L, Blood Urea Nitrogen 20H, Creatinine 0.9, Estimat Glomerular Filtration Rate > 60, Glucose Level 84, Calcium Level 7.8L Current Medications Medications (Trade) Dose Ordered Sig/Soledad Route PRN Reason Start Time Stop Time Status Last Admin Dose Admin Dextrose/ Electrolytes 1,000 ml @ 75 mls/hr [id number] IV 01/28/20 16:00 02/27/20 15:59 01/28/20 16:28 Hydromorphone HCl (Dilaudid) 1 mg Q4H PRN IVP Moderate Pain (Pain Scale 4-6) 01/27/20 16:00 02/03/20 15:59 01/28/20 16:28 Hydromorphone HCl (Dilaudid) 2 mg Q4H PRN IVP Severe Pain (Pain Scale 7-10) 01/27/20 16:00 02/03/20 15:59 01/28/20 05:04 Assessment/Plan Problems: (1) Unsteady gait (2) Frequent falls (3) Anemia Assessment/Plan GI consult appreciated all reviewed h/h better prbc prn rule out GI bleeding stool for OB pt/ot f/u cbc and reti count dvt prophylaxis. Ezio Montgomery MD Jan 28, 2020 16:45
[2020-01-28 17:35] LABS: LACTATE DEHYDROGENASE 276 U/L (81-234)
[2020-01-28 18:01] LABS: % IRON SATURATION 5 % (15-50); IRON 12 ug/dL (50-175); TOTAL IRON BINDING CAPACITY 256 ug/dL (250-450)
--- NOTE | 2020-01-28 19:27 | Internal Med Progress Note ---
Subjective Date of Service: Jan 28, 2020 Physician Name Mitch Ambriz Attending Physician Ben Hayes MD Current Medications Medications (Trade) Dose Ordered Sig/Soledad Route PRN Reason Start Time Stop Time Status Last Admin Dose Admin Dextrose/ Electrolytes 1,000 ml @ 75 mls/hr [id number] IV 01/28/20 16:00 02/27/20 15:59 01/28/20 16:28 Hydromorphone HCl (Dilaudid) 1 mg Q4H PRN IVP Moderate Pain (Pain Scale 4-6) 01/27/20 16:00 02/03/20 15:59 01/28/20 16:28 Hydromorphone HCl (Dilaudid) 2 mg Q4H PRN IVP Severe Pain (Pain Scale 7-10) 01/27/20 16:00 02/03/20 15:59 01/28/20 05:04 Allergies: Coded Allergies: ACETAMINOPHEN (Verified Allergy, Unknown, 01/25/20) IBUPROFEN (Verified Allergy, Unknown, 01/26/20) ROS Limited/Unobtainable: No Constitutional: Reports: no symptoms HEENT: Reports: no symptoms Cardiovascular: Reports: no symptoms Respiratory: Reports: no symptoms Gastrointestinal/Abdominal: Reports: no symptoms Genitourinary: Reports: no symptoms Neurologic/Psychiatric: Reports: no symptoms Subjective 69 YO M admitted with back and neck pain. Now Severe anemia. Cover for Int med-Dr Hayes. Endoscopy and colonoscopy scheduled 01/29/20 Objective Last Vital Signs Date Time Temp Pulse Resp B/P (MAP) Pulse Ox O2 Delivery O2 Flow Rate FiO2 01/28/20 16:58 97.8 01/28/20 16:00 88 18 135/86 (102) 97 01/28/20 09:00 Room Air Laboratory Tests Test 01/28/20 10:00 White Blood Count 9.2 K/UL (4.8-10.8) Red Blood Count 3.48 M/UL (4.70-6.10) L Hemoglobin 9.0 G/DL (14.2-18.0) L Hematocrit 28.5 % (42.0-52.0) L Mean Corpuscular Volume 82 FL (80-99) Mean Corpuscular Hemoglobin 25.8 PG (27.0-31.0) L Mean Corpuscular Hemoglobin Concent 31.5 G/DL (32.0-36.0) L Red Cell Distribution Width 19.1 % (11.6-14.8) H Platelet Count 545 K/UL (150-450) H Mean Platelet Volume 6.4 FL (6.5-10.1) L Neutrophils (%) (Auto) 60.4 % (45.0-75.0) Lymphocytes (%) (Auto) 26.6 % (20.0-45.0) Monocytes (%) (Auto) 9.7 % (1.0-10.0) Eosinophils (%) (Auto) 1.6 % (0.0-3.0) Basophils (%) (Auto) 1.7 % (0.0-2.0) Erythrocyte Sedimentation Rate 72 MM/HR (0-20) H Reticulocyte Count Pending Sodium Level 139 MMOL/L (136-145) Potassium Level 4.0 MMOL/L (3.5-5.1) Chloride Level 105 MMOL/L (98-107) Carbon Dioxide Level 30 MMOL/L (21-32) Anion Gap 4 mmol/L (5-15) L Blood Urea Nitrogen 20 mg/dL (7-18) H Creatinine 0.9 MG/DL (0.55-1.30) Estimat Glomerular Filtration Rate > 60 mL/min (>60) Glucose Level 84 MG/DL (74-106) Calcium Level 7.8 MG/DL (8.5-10.1) L Iron Level 12 ug/dL (50-175) L Total Iron Binding Capacity 256 ug/dL (250-450) Percent Iron Saturation 5 % (15-50) L Unsaturated Iron Binding 244 ug/dL (112-346) Lactate Dehydrogenase 276 U/L (81-234) H Carcinoembryonic Antigen Pending Vitamin B12 Level 683 PG/ML (193-986) Folate 7.7 NG/ML (8.6-58.9) L Microbiology Date/Time Source Procedure Growth Status 01/25/20 20:30 Rectum VRE Culture - Final Enterococcus Faecium - Vre Complete 01/25/20 20:30 Rectum - Final NO CARBAPENEM-RESISTANT ENTEROBACTERI... Complete 01/25/20 20:30 Nasal Nares MRSA Culture - Final NO METHICILLIN RESISTANT STAPH AUREUS... Complete Intake and Output 01/27/20 01/28/20 19:00 07:00 Intake Total 880 ml 1000 ml Output Total 2300 ml Balance 880 ml -1300 ml Intake Oral 480 ml Other 400 ml 1000 ml Output Urine Total 2300 ml # Voids 2 # Bowel Movements 1 Objective PHYSICAL EXAMINATION: GENERAL: The patient is a thin-appearing male, who appears older than his stated age. HEENT: Eyes, pupils equal and responsive to light and accommodation. Extraocular movements are intact. NECK: Supple without lymphadenopathy. CHEST: Lungs are clear to auscultation bilaterally without wheezes or rales. CARDIOVASCULAR: Regular rate. S1, S2 are normal without murmurs, rubs, or gallops. ABDOMEN: Soft, nontender, and nondistended. Positive bowel sounds. No evidence of hepatosplenomegaly. Currently no rebound or guarding noted. EXTREMITIES: Negative for clubbing, cyanosis, or edema. RECTAL/GENITAL: Not performed. NEUROLOGIC: Cranial nerves II through XII are grossly intact without focal deficits. Motor strength is 5/5 bilaterally. Deep tendon reflexes are 2+ plantar. Assessment/Plan Assessment/Plan ASSESSMENT: This is a 69-year-old male. 1. Severe anemia. 2. Cervical spine pain. 3. Thoracic spine pain. 4. Lumbar spine pain. 5. Hypertension. 6. Functional paraplegia. TREATMENT: 1. Severe anemia. S/P transfusion 2 units of packed RBCs. An iron function panel is pending. A gastroenterology consultation has been obtained with Dr. Diaz Taylor. Differential includes gastrointestinal hemorrhage versus iron deficiency. Endoscopy and colonoscopy scheduled 01/29/20 2. Cervical/thoracic/lumbar spine pain. The patient is currently requesting dilaudid (see allergies above) 3. Hypertension. Continue clonidine p.r.Mitch Bynum MD Jan 28, 2020 19:27
--- NOTE | 2020-01-28 19:27 | NUR ---
NURSE HAND-OFF: Important Events on Shift:[IV fluids, pain management, refused EGD and colonoscopy tomorrow] Patient Status: [stable] Diet: [regular] Pending Orders: [] Pending Results/Labs:[] Pending MD notification:[] Latest Vital Signs: Temperature 97.8 , Pulse 88 , B/P 135 /86 , Respiratory Rate 18 , O2 SAT 97 , Room Air, O2 Flow Rate . Vital Sign Comment: [] Latest Ramirez Fall Score: 80 Fall Risk: High Risk Safety Measures: Call light Within Reach, Bed Alarm Zone 2, Side Rails Side Rails x2, Bed position Low and Locked. Fall Precautions: Yellow Socks Yellow Gown Patient Fall Education Report given to [PEDRITO Alva].
[2020-01-28 20:00] VITALS: BP 145/85
--- NOTE | 2020-01-28 20:14 | NUR ---
NURSE NOTES: Received patient in bed, awake, alert, oriented x3, on room air, IV site is clean dry and intact, patient has a condom cath, patient is bedbound, call light is within reach, bed is lowered, locked, alarm is on, will continue to monitor for comfort and safety.
--- NOTE | 2020-01-28 22:58 | CDS Physician Query ---
Clarification is required for compliance, coding accuracy, and to reflect severity of illness for this patient Dear Mitch Fong MD Date: 01/28/20 CDIS Name:Jurgen Velasquez 69-year-old male who presents with a chief complaint of neck pain and back pain. ASSESSMENT: 1. Severe anemia. 2. Cervical spine pain. 3. Thoracic spine pain. 4. Lumbar spine pain. 5. Hypertension. 6. Functional paraplegia. NUTRITION DIAGNOSIS: Increased kcal and pro needs r/t underweight status and skin integrity as evidenced by pt is 76% of [place] Body weight, lower extremity alterations in skin integrity, eval pending. Clinical Finding Show: BMI: 17.5 kg/m2 LAB (01/24) : Chem: Albumin 2.2 [3.4-5.0], Calcium 8.1 [ 8.5-10.1] Please select the most appropriate option: [] Protein/Calorie Malnutrition [] Mild [] Moderate [] Severe [] Hypoalbuminemia [] Cachexia [X] Underweight [] Intestinal malabsorption [] Other [] Unable to determine [] Not Applicable Present on Admission: [X] Yes [] No [] Clinically Undetermined Physician signature Date Please also document in your Progress Notes and/or Discharge Summary and indicate if the condition was present on admission. MTDD
[2020-01-29] VITALS: BP 142/85
[2020-01-29 04:00] VITALS: BP 139/74
[2020-01-29] MEDS: D5 1/2NS w/KCl 20mEq 1,000 ML IV SCH ×2 (05:20→17:51)
--- NOTE | 2020-01-29 07:25 | NUR ---
NURSE NOTES: Received report from PEDRITO Alva. Patient is in bed, awake and oriented x 3-4, no SOB, bed in lowest position with breaks engaged and alarm on, no pain or discomfort per assessment, IV line present on right hand, on room air, will continue to monitor and proceed with plan of care, call light within reach
--- NOTE | 2020-01-29 07:36 | NUR ---
NURSE HAND-OFF: Important Events on Shift:stable Patient Status: Full code Diet: regular Pending Orders: Pending Results/Labs: Pending MD notification: Latest Vital Signs: Temperature 97.4 , Pulse 74 , B/P 139 /74 , Respiratory Rate 18 , O2 SAT 94 , Room Air, O2 Flow Rate . Vital Sign Comment: Latest Ramirez Fall Score: 80 Fall Risk: High Risk Safety Measures: Call light Within Reach, Bed Alarm Zone 2, Side Rails Side Rails x2, Bed position Low and Locked. Fall Precautions: Yellow Socks Yellow Gown Patient Fall Education Report given to Brina MAJOR
[2020-01-29 08:00] VITALS: BP 125/86
[2020-01-29 09:04] LABS: BASOPHILS % (AUTO) 2.2 % (0.0-2.0); EOSINOPHILS % (AUTO) 1.9 % (0.0-3.0); HEMATOCRIT 30.8 % (42.0-52.0); HEMOGLOBIN 9.9 G/DL (14.2-18.0); LYMPHOCYTES % (AUTO) 28.6 % (20.0-45.0); MEAN CORPUSCULAR VOLUME 81 FL (80-99); MONOCYTES % (AUTO) 10.3 % (1.0-10.0); NEUTROPHILS % (AUTO) 57.1 % (45.0-75.0); PLATELET COUNT 535 K/UL (150-450); RED BLOOD COUNT 3.81 M/UL (4.70-6.10); RED CELL DISTRIBUTION WIDTH 19.9 % (11.6-14.8); WHITE BLOOD COUNT 7.3 K/UL (4.8-10.8)
[2020-01-29 09:24] LABS: ANION GAP 5 mmol/L (5-15); BLOOD UREA NITROGEN 20 mg/dL (7-18); CALCIUM 8.2 MG/DL (8.5-10.1); CARBON DIOXIDE 30 MMOL/L (21-32); CHLORIDE 105 MMOL/L (98-107); CREATININE 0.8 MG/DL (0.55-1.30); POTASSIUM 4.1 MMOL/L (3.5-5.1); SODIUM 140 MMOL/L (136-145)
--- NOTE | 2020-01-29 10:20 | General Progress Note ---
Subjective ROS Limited/Unobtainable: Yes Allergies: Coded Allergies: ACETAMINOPHEN (Verified Allergy, Unknown, 01/25/20) IBUPROFEN (Verified Allergy, Unknown, 01/26/20) Objective Last 24 Hour Vital Signs Date Time Temp Pulse Resp B/P (MAP) Pulse Ox O2 Delivery O2 Flow Rate FiO2 01/29/20 09:00 Room Air 01/29/20 08:00 97.7 77 16 125/86 (99) 97 01/29/20 04:09 97.4 01/29/20 04:00 98.7 74 18 139/74 (95) 94 01/29/20 00:00 97.4 84 20 142/85 (104) 99 01/28/20 21:41 97.8 01/28/20 21:32 Room Air 01/28/20 20:00 98.3 91 18 145/85 (105) 98 01/28/20 16:58 97.8 01/28/20 16:00 98.6 88 18 135/86 (102) 97 01/28/20 12:22 97.8 01/28/20 12:00 97.8 84 18 138/93 (108) 98 Intake and Output 0 01/28/20 01/29/20 19:00 07:00 Intake Total 780 ml Output Total 700 ml 400 ml Balance 80 ml -400 ml Intake Oral 780 ml Output Urine Total 700 ml 400 ml # Bowel Movements 1 Laboratory Tests 01/28/20 20:15: Prothrombin Time 11.0, Prothromb Time International Ratio 1.0, Activated Partial Thromboplast Time 28 01/29/20 08:35: White Blood Count 7.3, Red Blood Count 3.81L, Hemoglobin 9.9L, Hematocrit 30.8L, Mean Corpuscular Volume 81, Mean Corpuscular Hemoglobin 26.1L, Mean Corpuscular Hemoglobin Concent 32.3, Red Cell Distribution Width 19.9H, Platelet Count 535H, Mean Platelet Volume 6.6, Neutrophils (%) (Auto) 57.1, Lymphocytes (%) (Auto) 28.6, Monocytes (%) (Auto) 10.3H, Eosinophils (%) (Auto) 1.9, Basophils (%) (Auto) 2.2H, Sodium Level 140, Potassium Level 4.1, Chloride Level 105, Carbon Dioxide Level 30, Anion Gap 5, Blood Urea Nitrogen 20H, Creatinine 0.8, Estimat Glomerular Filtration Rate > 60, Glucose Level 95, Calcium Level 8.2L Height (Feet): 6 Height (Inches): 1.00 Weight (Pounds): 133 General Appearance: no apparent distress EENT: normal ENT inspection Neck: supple Cardiovascular: normal rate Respiratory/Chest: decreased breath sounds Abdomen: normal bowel sounds, non tender, soft Extremities: non-tender Assessment/Plan Assessment/Plan: iron def anemia patient refused EGD and colonoscopy iv iron CEA stool ob repeat labs Diaz Taylor MD Jan 29, 2020 10:20
[2020-01-29 12:00] VITALS: BP 130/83
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
--- NOTE | 2020-01-29 13:44 | NUR ---
*-*DISCHARGE PLANNING*-* SPOKE WITH PATIENT, WHO STATED HE WANTS TO GO HOME, HAS HIS OWN PLACE AND DOES NOT WANT TO GO TO SNF, ALSO STATED THEY ARE HAVING A PROCEDURE DONE AND NOT SURE OF THE EXACT DATE.
--- NOTE | 2020-01-29 14:32 | NUR ---
CASE MANAGEMENT:REVIEW SI;ANEMIA. S/P FALL. GIB RULE OUT. 98.7 77 18 139/74 94% ON RA H/H 9.9/30.8 IS;IVF D5W @ 75 ML/HR BENADRYL PO Q6 PRN DILAUDID IV Q4 PRN MED SURG STATUS DCP;PATIENT IS FROM HOME PLAN; SNF PLACEMENT PATIENT REFUSED SNF HAS HOME AND PREFERS TO DC HOME VS SNF
--- NOTE | 2020-01-29 14:52 | NUR ---
*-*DISCHARGE PLANNING*-* PATIENT HAS BEEN REFERRED TO: [facility] P: [phone]
--- NOTE | 2020-01-29 14:59 | NUR ---
*-*DISCHARGE PLANNING*-* PATIENT HAS BEEN REFERRED TO: [facility] P: [phone]
[2020-01-29 16:00] VITALS: BP 123/89
--- NOTE | 2020-01-29 16:42 | NUR ---
*-*DISCHARGE PLANNING*-* PATIENT HAS BEEN REFERRED TO: [facility] P: [phone] S/W CAREY YANEZ ON DONs APPROVAL, WILL CALL BACK.
--- NOTE | 2020-01-29 17:05 | NUR ---
*-*DISCHARGE PLANNING*-* PATIENT HAS BEEN REFERRED TO: [facility] P: [phone] S/W RENATA, UNABLE TO ACCEPT DO TO LIMITED BED SPACE.
--- NOTE | 2020-01-29 17:24 | Internal Med Progress Note ---
Subjective Date of Service: Jan 29, 2020 Physician Name KatinaMitch Attending Physician Ben Hayes MD Current Medications Medications (Trade) Dose Ordered Sig/Soledad Route PRN Reason Start Time Stop Time Status Last Admin Dose Admin Dextrose/ Electrolytes 1,000 ml @ 75 mls/hr [id number] IV 01/28/20 16:00 02/27/20 15:59 01/29/20 05:20 Diphenhydramine HCl (Benadryl) 25 mg Q6H PRN ORAL Itching 01/29/20 14:30 02/28/20 14:29 01/29/20 14:29 Hydromorphone HCl (Dilaudid) 1 mg Q4H PRN IVP Moderate Pain (Pain Scale 4-6) 01/27/20 16:00 02/03/20 15:59 01/28/20 16:28 Hydromorphone HCl (Dilaudid) 2 mg Q4H PRN IVP Severe Pain (Pain Scale 7-10) 01/27/20 16:00 02/03/20 15:59 01/29/20 16:30 Iron Sucrose 100 mg/Sodium Chloride 60 ml @ 240 mls/hr BEDTIME IVPB 01/29/20 21:00 02/02/20 21:14 Allergies: Coded Allergies: ACETAMINOPHEN (Verified Allergy, Unknown, 01/25/20) IBUPROFEN (Verified Allergy, Unknown, 01/26/20) ROS Limited/Unobtainable: No Constitutional: Reports: no symptoms HEENT: Reports: no symptoms Cardiovascular: Reports: no symptoms Respiratory: Reports: no symptoms Gastrointestinal/Abdominal: Reports: no symptoms Genitourinary: Reports: no symptoms Neurologic/Psychiatric: Reports: no symptoms Subjective 69 YO M admitted with back and neck pain. Now Severe anemia. Cover for Int med-Dr Hayes. Patient refused Endoscopy and colonoscopy on 01/29/20 Objective Last Vital Signs Date Time Temp Pulse Resp B/P (MAP) Pulse Ox O2 Delivery O2 Flow Rate FiO2 01/29/20 17:00 98.1 01/29/20 16:00 85 17 123/89 (100) 98 01/29/20 09:00 Room Air Laboratory Tests Test 01/28/20 20:15 01/29/20 08:35 Prothrombin Time 11.0 SEC (9.30-11.50) Prothromb Time International Ratio 1.0 (0.9-1.1) Activated Partial Thromboplast Time 28 SEC (23-33) White Blood Count 7.3 K/UL (4.8-10.8) Red Blood Count 3.81 M/UL (4.70-6.10) L Hemoglobin 9.9 G/DL (14.2-18.0) L Hematocrit 30.8 % (42.0-52.0) L Mean Corpuscular Volume 81 FL (80-99) Mean Corpuscular Hemoglobin 26.1 PG (27.0-31.0) L Mean Corpuscular Hemoglobin Concent 32.3 G/DL (32.0-36.0) Red Cell Distribution Width 19.9 % (11.6-14.8) H Platelet Count 535 K/UL (150-450) H Mean Platelet Volume 6.6 FL (6.5-10.1) Neutrophils (%) (Auto) 57.1 % (45.0-75.0) Lymphocytes (%) (Auto) 28.6 % (20.0-45.0) Monocytes (%) (Auto) 10.3 % (1.0-10.0) H Eosinophils (%) (Auto) 1.9 % (0.0-3.0) Basophils (%) (Auto) 2.2 % (0.0-2.0) H Sodium Level 140 MMOL/L (136-145) Potassium Level 4.1 MMOL/L (3.5-5.1) Chloride Level 105 MMOL/L (98-107) Carbon Dioxide Level 30 MMOL/L (21-32) Anion Gap 5 mmol/L (5-15) Blood Urea Nitrogen 20 mg/dL (7-18) H Creatinine 0.8 MG/DL (0.55-1.30) Estimat Glomerular Filtration Rate > 60 mL/min (>60) Glucose Level 95 MG/DL (74-106) Calcium Level 8.2 MG/DL (8.5-10.1) L Intake and Output 01/28/20 01/29/20 19:00 07:00 Intake Total 780 ml Output Total 700 ml 400 ml Balance 80 ml -400 ml Intake Oral 780 ml Output Urine Total 700 ml 400 ml # Bowel Movements 1 Objective PHYSICAL EXAMINATION: GENERAL: The patient is a thin-appearing male, who appears older than his stated age. HEENT: Eyes, pupils equal and responsive to light and accommodation. Extraocular movements are intact. NECK: Supple without lymphadenopathy. CHEST: Lungs are clear to auscultation bilaterally without wheezes or rales. CARDIOVASCULAR: Regular rate. S1, S2 are normal without murmurs, rubs, or gallops. ABDOMEN: Soft, nontender, and nondistended. Positive bowel sounds. No evidence of hepatosplenomegaly. Currently no rebound or guarding noted. EXTREMITIES: Negative for clubbing, cyanosis, or edema. RECTAL/GENITAL: Not performed. NEUROLOGIC: Cranial nerves II through XII are grossly intact without focal deficits. Motor strength is 5/5 bilaterally. Deep tendon reflexes are 2+ plantar. Assessment/Plan Assessment/Plan ASSESSMENT: This is a 69-year-old male. 1. Severe anemia. 2. Cervical spine pain. 3. Thoracic spine pain. 4. Lumbar spine pain. 5. Hypertension. 6. Functional paraplegia. TREATMENT: 1. Severe anemia. S/P transfusion 2 units of packed RBCs. An iron function panel is pending. A gastroenterology consultation has been obtained with Dr. Diaz Taylor. Differential includes gastrointestinal hemorrhage versus iron deficiency. patient refused Endoscopy and colonoscopy scheduled 01/29/20 2. Cervical/thoracic/lumbar spine pain. The patient is currently requesting dilaudid (see allergies above) 3. Hypertension. Continue clonidine p.Mitch Kirk MD Jan 29, 2020 17:24
--- NOTE | 2020-01-29 19:28 | NUR ---
NURSE HAND-OFF: Important Events on Shift:[new IV on right hand, IV fluids, pain management, VS and labs monitoring, new CM consult and PT eval order, new Benadryl PO order] Patient Status: [stable] Diet: [regular] Pending Orders: [] Pending Results/Labs:[] Pending MD notification:[] Latest Vital Signs: Temperature 98.1 , Pulse 85 , B/P 123 /89 , Respiratory Rate 17 , O2 SAT 98 , Room Air, O2 Flow Rate . Vital Sign Comment: [] Latest Ramirez Fall Score: 80 Fall Risk: High Risk Safety Measures: Call light Within Reach, Bed Alarm Zone 2, Side Rails Side Rails x2, Bed position Low and Locked. Fall Precautions: Yellow Socks Yellow Gown Patient Fall Education Report given to [PEDRITO Jimenez].
--- NOTE | 2020-01-29 19:35 | NUR ---
NURSE NOTES: Patient in bed, awake, able to verbalize needs. On room air with no SOB or distress. IV intact and patent. Bed locked and in lowest position. Call light in reach. bed alarm on. Will continue plan of care.
[2020-01-29 20:00] VITALS: BP 134/75
[2020-01-29] MEDS: Iron Sucrose 100 MG in NS 55 ML IVPB SCH (21:02)
[2020-01-30] VITALS: BP 119/82
[2020-01-30 04:00] VITALS: BP 125/80
--- NOTE | 2020-01-30 06:55 | NUR ---
NURSE NOTES: Patient reports burning upon urination. Reports onset about 30 minutes ago. Left message for Dr. Hayes. Awaiting call back.
--- NOTE | 2020-01-30 07:48 | NUR ---
NURSE HAND-OFF: Important Events on Shift: Pain control, UA and Urine CX ordered for dysuria Patient Status: Stable Diet: Reg Pending Orders: UA/UCx Pending Results/Labs: CBC, BMP Pending MD notification: N/A Latest Vital Signs: Temperature 97.8 , Pulse 83 , B/P 125 /80 , Respiratory Rate 17 , O2 SAT 99 , Room Air, O2 Flow Rate . Vital Sign Comment: N/A Latest Ramirez Fall Score: 80 Fall Risk: High Risk Safety Measures: Call light Within Reach, Bed Alarm Zone 2, Side Rails Side Rails x2, Bed position Low and Locked. Fall Precautions: Yellow Socks Yellow Gown Patient Fall Education Report given to PEDRITO Tovar.
[2020-01-30 08:00] VITALS: BP 119/76
--- NOTE | 2020-01-30 08:09 | NUR ---
NURSE NOTES: received report from PEDRITO Jimenez. patient in bed. A&Ox4, verbally responsive. no respiratory distress on room air. no pain at this time. IV on RH running 1/2ns [id number]. condom cath draining. contact isolation d/t active V.R. bed in the lowest position and locked. call light within reach. will continue to provide plan of care.
[2020-01-30 08:31] LABS: BASOPHILS % (AUTO) 1.5 % (0.0-2.0); EOSINOPHILS % (AUTO) 2.2 % (0.0-3.0); HEMATOCRIT 27.7 % (42.0-52.0); HEMOGLOBIN 9.3 G/DL (14.2-18.0); LYMPHOCYTES % (AUTO) 24.1 % (20.0-45.0); MEAN CORPUSCULAR VOLUME 79 FL (80-99); MONOCYTES % (AUTO) 13.1 % (1.0-10.0); PLATELET COUNT 542 K/UL (150-450); RED BLOOD COUNT 3.52 M/UL (4.70-6.10); RED CELL DISTRIBUTION WIDTH 20.3 % (11.6-14.8); WHITE BLOOD COUNT 7.7 K/UL (4.8-10.8)
[2020-01-30] MEDS: D5 1/2NS w/KCl 20mEq 1,000 ML IV SCH (08:54)
[2020-01-30 09:02] LABS: BLOOD UREA NITROGEN 22 mg/dL (7-18); CALCIUM 7.9 MG/DL (8.5-10.1); CARBON DIOXIDE 29 MMOL/L (21-32); CHLORIDE 104 MMOL/L (98-107); CREATININE 0.8 MG/DL (0.55-1.30); POTASSIUM 4.1 MMOL/L (3.5-5.1); SODIUM 137 MMOL/L (136-145)
--- NOTE | 2020-01-30 09:39 | General Progress Note ---
Subjective ROS Limited/Unobtainable: Yes Allergies: Coded Allergies: ACETAMINOPHEN (Verified Allergy, Unknown, 01/25/20) IBUPROFEN (Verified Allergy, Unknown, 01/26/20) Objective Last 24 Hour Vital Signs Date Time Temp Pulse Resp B/P (MAP) Pulse Ox O2 Delivery O2 Flow Rate FiO2 01/30/20 04:00 97.8 83 17 125/80 (95) 99 01/30/20 00:00 97.6 93 19 119/82 (94) 100 01/29/20 20:11 Room Air 01/29/20 20:00 98.2 90 17 134/75 (94) 98 01/29/20 17:00 98.1 01/29/20 16:00 98.1 85 17 123/89 (100) 98 01/29/20 12:40 97.7 01/29/20 12:00 97.7 77 16 130/83 (99) 97 Intake and Output 01/29/20 01/30/20 18:59 06:59 Intake Total 420 ml 400 ml Output Total 600 ml 1400 ml Balance -180 ml -1000 ml Intake Oral 420 ml Other 400 ml Output Urine Total 600 ml 1400 ml Laboratory Tests 01/30/20 08:10: White Blood Count 7.7, Red Blood Count 3.52L, Hemoglobin 9.3L, Hematocrit 27.7L, Mean Corpuscular Volume 79L, Mean Corpuscular Hemoglobin 26.4L, Mean Corpuscular Hemoglobin Concent 33.5, Red Cell Distribution Width 20.3H, Platelet Count 542H, Mean Platelet Volume 6.6, Neutrophils (%) (Auto) 59.0, Lymphocytes (%) (Auto) 24.1, Monocytes (%) (Auto) 13.1H, Eosinophils (%) (Auto) 2.2, Basophils (%) (Auto) 1.5, Sodium Level 137, Potassium Level 4.1, Chloride Level 104, Carbon Dioxide Level 29, Blood Urea Nitrogen 22H, Creatinine 0.8, Estimat Glomerular Filtration Rate > 60, Glucose Level 131H, Calcium Level 7.9L, Carcinoembryonic Antigen [Pending] Height (Feet): 6 Height (Inches): 1.00 Weight (Pounds): 133 General Appearance: alert EENT: normal ENT inspection Neck: supple Cardiovascular: normal rate Respiratory/Chest: decreased breath sounds Abdomen: normal bowel sounds, non tender, soft Extremities: non-tender Assessment/Plan Assessment/Plan: iron def anemia elevated CEA patient refused EGD and colonoscopy plan CT of abd and pelvic iv iron stool ob repeat labs Diaz Taylor MD Jan 30, 2020 09:39
[2020-01-30] MEDS ORDERED: Omnipaque-300 100ml vial INJ PRN (09:45)
--- NOTE | 2020-01-30 11:52 | Internal Med Progress Note ---
Subjective Date of Service: Jan 30, 2020 Physician Name Mitch Ambriz Attending Physician Ben Hayes MD Current Medications Medications (Trade) Dose Ordered Sig/Soledad Route PRN Reason Start Time Stop Time Status Last Admin Dose Admin Barium Sulfate (Readi-Cat 2) 450 ml NOW PRN ORAL Radiology Procedure 01/30/20 09:45 02/01/20 09:44 Dextrose/ Electrolytes 1,000 ml @ 75 mls/hr [id number] IV 01/28/20 16:00 02/27/20 15:59 01/30/20 08:54 Diphenhydramine HCl (Benadryl) 25 mg Q6H PRN ORAL Itching 01/29/20 14:30 02/28/20 14:29 01/30/20 00:14 Hydromorphone HCl (Dilaudid) 1 mg Q4H PRN IVP Moderate Pain (Pain Scale 4-6) 01/27/20 16:00 02/03/20 15:59 01/28/20 16:28 Hydromorphone HCl (Dilaudid) 2 mg Q4H PRN IVP Severe Pain (Pain Scale 7-10) 01/27/20 16:00 02/03/20 15:59 01/30/20 10:44 Iohexol (OMNIPAQUE-300 100ml) 100 ml NOW PRN INJ Radiology Procedure 01/30/20 09:45 02/01/20 09:44 Iron Sucrose 100 mg/Sodium Chloride 60 ml @ 240 mls/hr BEDTIME IVPB 01/29/20 21:00 02/02/20 21:14 01/29/20 21:02 Allergies: Coded Allergies: ACETAMINOPHEN (Verified Allergy, Unknown, 01/25/20) IBUPROFEN (Verified Allergy, Unknown, 01/26/20) ROS Limited/Unobtainable: No Constitutional: Reports: no symptoms HEENT: Reports: no symptoms Cardiovascular: Reports: no symptoms Respiratory: Reports: no symptoms Gastrointestinal/Abdominal: Reports: no symptoms Genitourinary: Reports: no symptoms Neurologic/Psychiatric: Reports: no symptoms Subjective 69 YO M admitted with back and neck pain. Now Severe anemia. Cover for Int med-Dr Hayes. Patient refused Endoscopy and colonoscopy on 01/29/20 Objective Last Vital Signs Date Time Temp Pulse Resp B/P (MAP) Pulse Ox O2 Delivery O2 Flow Rate FiO2 01/30/20 04:00 97.8 83 17 125/80 (95) 99 01/29/20 20:11 Room Air Laboratory Tests Test 01/30/20 08:10 White Blood Count 7.7 K/UL (4.8-10.8) Red Blood Count 3.52 M/UL (4.70-6.10) L Hemoglobin 9.3 G/DL (14.2-18.0) L Hematocrit 27.7 % (42.0-52.0) L Mean Corpuscular Volume 79 FL (80-99) L Mean Corpuscular Hemoglobin 26.4 PG (27.0-31.0) L Mean Corpuscular Hemoglobin Concent 33.5 G/DL (32.0-36.0) Red Cell Distribution Width 20.3 % (11.6-14.8) H Platelet Count 542 K/UL (150-450) H Mean Platelet Volume 6.6 FL (6.5-10.1) Neutrophils (%) (Auto) 59.0 % (45.0-75.0) Lymphocytes (%) (Auto) 24.1 % (20.0-45.0) Monocytes (%) (Auto) 13.1 % (1.0-10.0) H Eosinophils (%) (Auto) 2.2 % (0.0-3.0) Basophils (%) (Auto) 1.5 % (0.0-2.0) Sodium Level 137 MMOL/L (136-145) Potassium Level 4.1 MMOL/L (3.5-5.1) Chloride Level 104 MMOL/L (98-107) Carbon Dioxide Level 29 MMOL/L (21-32) Blood Urea Nitrogen 22 mg/dL (7-18) H Creatinine 0.8 MG/DL (0.55-1.30) Estimat Glomerular Filtration Rate > 60 mL/min (>60) Glucose Level 131 MG/DL (74-106) H Calcium Level 7.9 MG/DL (8.5-10.1) L Carcinoembryonic Antigen Pending Intake and Output 01/29/20 01/30/20 19:00 07:00 Intake Total 420 ml 400 ml Output Total 600 ml 1400 ml Balance -180 ml -1000 ml Intake Oral 420 ml Other 400 ml Output Urine Total 600 ml 1400 ml Objective PHYSICAL EXAMINATION: GENERAL: The patient is a thin-appearing male, who appears older than his stated age. HEENT: Eyes, pupils equal and responsive to light and accommodation. Extraocular movements are intact. NECK: Supple without lymphadenopathy. CHEST: Lungs are clear to auscultation bilaterally without wheezes or rales. CARDIOVASCULAR: Regular rate. S1, S2 are normal without murmurs, rubs, or gallops. ABDOMEN: Soft, nontender, and nondistended. Positive bowel sounds. No evidence of hepatosplenomegaly. Currently no rebound or guarding noted. EXTREMITIES: Negative for clubbing, cyanosis, or edema. RECTAL/GENITAL: Not performed. NEUROLOGIC: Cranial nerves II through XII are grossly intact without focal deficits. Motor strength is 5/5 bilaterally. Deep tendon reflexes are 2+ plantar. Assessment/Plan Assessment/Plan ASSESSMENT: This is a 69-year-old male. 1. Severe anemia. 2. Cervical spine pain. 3. Thoracic spine pain. 4. Lumbar spine pain. 5. Hypertension. 6. Functional paraplegia. TREATMENT: 1. Severe anemia. S/P transfusion 2 units of packed RBCs. An iron function panel is pending. A gastroenterology consultation has been obtained with Dr. Diaz Taylor. Differential includes gastrointestinal hemorrhage versus iron deficiency. patient refused Endoscopy and colonoscopy scheduled 01/29/20 2. Cervical/thoracic/lumbar spine pain. The patient is currently requesting dilaudid (see allergies above) 3. Hypertension. Continue clonidine p.r.n. 4. Discharge planning: NOT accepted at [facility] Mitch Ambriz MD Jan 30, 2020 11:52
[2020-01-30 12:00] VITALS: BP 123/78
--- NOTE | 2020-01-30 12:34 | NUR ---
ENGINEERING AID NOTE SW met w/ pt to clarify his current living situation. PT reports he came from [facility], located on [facility] and [facility]. Per pt, he was at [facility] and he was sent to this board and [facility] where it required independence w/ ADLs and IADLs. Pt shares he was independent w/ ADLs prior to admission w/ his automatic wheelchair. Pt shares he does not know where his wheelchair is currently at. Prior to his placement at [facility], pt was residing alone at [address] at [address] [place] [address] for 5 years. Pt reports the building is wheelchair accessible. Pt receives SSI and he is the self-payee. SW spoke w/ Jesica, who is listed on the emergency contact that [phone] that pt does have his own home, and his brother was the [facility] caregiver. Jesica will call this SW back after the meeting.
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
--- NOTE | 2020-01-30 13:38 | NUR ---
RD ASSESSMENT & RECOMMENDATIONS SEE CARE ACTIVITY FOR COMPLETE ASSESSMENT DAILY ESTIMATED NEEDS: Needs based on underweight, skin integrity 63.3kg 30-35 kcals/kg 9073-8125 total kcals 1.25-1.5 g protein/kg 79-95 g total protein 25-30 mL/kg 1946-6031 total fluid mLs NUTRITION DIAGNOSIS: Increased kcal and pro needs r/t underweight status and skin integrity as evidenced by pt is 76% of [place] Body weight, lower extremity alterations in skin integrity, eval pending. CURRENT DIET: Regular PO DIET RECOMMENDATIONS--->>> Regular diet + Double portions as tolerated ADDITIONAL RECOMMENDATIONS: 1) Obtain a calibrated bed scale weight 2) Consider added D5; BG borderline low (70)-> now w/ improved BG 3) rec WC eval 4) Add Ensure Enlive BID + snacks in b/w meals 5) Regular BG checks for hypoglycemia
--- NOTE | 2020-01-30 15:58 | NUR ---
INSURANCE CLINICALS FAXED TO [facility] [phone]
[2020-01-30 16:00] VITALS: BP 125/83
--- NOTE | 2020-01-30 16:03 | NUR ---
CASE MANAGEMENT:REVIEW SI;ANEMIA. INTRACTABLE BACK PAIN. 99.3 93 20 125/80 96% ON RA H/H 9.3/27.7 PLT 542 BUN 22 BG 131 CA 7.9 IS;DILAUDID IV Q4 PRN BENADRYL PO Q6 PRN IRON SUCROSE IV QD IVF D5W @ 75 ML/HR MED SURG STATUS DCP;FROM HOME PLAN; SNF PLACEMENT
--- NOTE | 2020-01-30 17:25 | Diagnostic Imaging Report ---
Clinical Indication: Abdominal pain Technique: No oral contrast utilized, per emergency room physician request IV administration nonionic contrast. Venous phase spiral acquisition obtained through the abdomen and pelvis. Multiplanar reconstructions were generated. Total dose length product 206 mGycm. CTDIvol(s) 4 mGy. Dose reduction achieved using automated exposure control Comparison: none Findings: There is some contrast in the distal small bowel, possibly from a prior outside exam. The patient is diffusely edematous. This limits inherent soft tissue contrast. There is a right inguinal hernia. The relationship to the inferior epigastric vessels is uncertain. This contains a single knuckle of small bowel. There is no small bowel dilatation. No evidence of diverticulosis or diverticulitis. The appendix is not definitely demonstrated, but no findings to suggest acute appendicitis are evident. No evidence of diverticulosis or diverticulitis. Moderate retained stool is seen in the right colon. There are midline fascial surgical wires. No free or loculated intraperitoneal gas or fluid is evident. Distal esophagus, stomach, duodenum are unremarkable The liver, gallbladder, bile ducts, pancreas, spleen, adrenals, kidneys are grossly unremarkable. No retroperitoneal or mesenteric mass or adenopathy. No pelvic mass or adenopathy. Surgical clips are seen within the pelvis. There are small bilateral pleural effusions. Atelectatic changes and scarring are seen at the lung bases. Impression: Anasarca, somewhat limiting evaluation due to lack of inherent tissue contrast as a result. Right inguinal hernia, containing a knuckle of small bowel. No evidence of obstruction or strangulation Moderate retained stool in the right colon, correlate with any history of constipation Evidence of prior midline surgery Evidence of prior pelvic surgery Small bilateral pleural effusions Basilar atelectatic changes and scarring The CT scanner at [facility] is accredited by the [employer] and the scans are performed using protocols designed to limit radiation exposure to as low as reasonably achievable to attain images of sufficient resolution adequate for diagnostic evaluation.
--- NOTE | 2020-01-30 17:28 | NUR ---
*-*DISCHARGE PLANNED*-* PATIENT HAS BEEN ACCEPTED AND WILL BE DISCHARGE BACK TO: [facility] P: [phone] FOR NURSE TO NURSE REPORT ROOM#104.[facility] SET FOR 6:15PM S/W TALIB [id number].
--- NOTE | 2020-01-30 17:49 | NUR ---
NURSE NOTES: notified Dr. gallardo regarding discharge medications. waiting for orders.
--- NOTE | 2020-01-30 18:15 | NUR ---
NURSE NOTES: 2nd time notified Dr. Montgomery for dc medications.
--- NOTE | 2020-01-30 18:23 | NUR ---
NURSE NOTES: received order from Dr. Montgomery. continue to current medications. order noted and carried out. called ambulance and request will call.
--- NOTE | 2020-01-30 18:40 | NUR ---
NURSE NOTES: called [facility]. scheduled ambulance at 1930.
[2020-01-30] MEDS ORDERED: VENOFER50 MG/2.5 IV (18:54)
--- NOTE | 2020-01-30 19:37 | NUR ---
NURSE HAND-OFF: Important Events on Shift:discharge to [facility] Patient Status: stable, pain on neck Diet: regular diet Pending Orders: n/a Pending Results/Labs:n/a Pending MD notification:n/a Latest Vital Signs: Temperature 98.6 , Pulse 83 , B/P 125 /83 , Respiratory Rate 18 , O2 SAT 98 , Room Air, O2 Flow Rate . Vital Sign Comment: stable Latest Ramirez Fall Score: 80 Fall Risk: High Risk Safety Measures: Call light Within Reach, Bed Alarm Zone 2, Side Rails Side Rails x2, Bed position Low and Locked. Fall Precautions: Yellow Socks Yellow Gown Patient Fall Education Report given to PEDRITO Quezada.
[2020-01-30] MEDS: Iron Sucrose 100 MG in NS 55 ML IVPB SCH (20:03)
--- NOTE | 2020-01-30 20:22 | NUR ---
NURSE NOTES: Patient complained of pain, received order to give one time order of PRN pain medication. Noted.
[2020-01-30] MEDS ORDERED: HYDROmorphone 1mg/ml Carpuject IVP SCH (20:30)
--- NOTE | 2020-01-30 21:30 | NUR ---
NURSE NOTES: patient in bed, awake, alert and verbally responsive. Able to make needs known. Respiration is even and unlabored. Dressings were changed prior to discharge. No belongings noted. Patient refused to sign discharge paper. Noted saying "i dont need to sign since im leaving anyways". Patient alert x 4. Patient was given second dose of venofer and one time dose of dilaudid prior to discharge. [facility] picked up patient. No distress noted.
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
== END 2020-01-30 21:10 | DRG 663 ==
LOC: EMR 17:15 → 4E 18:58 → EDBEDREQ 23:00
PROC: 30233N1 Transfusion of Nonautologous Red Blood Cells into Peripheral Vein, Percutaneous Approach (ICD-10-PCS; principal; 2020-01-25)
DX: D50.9 Iron deficiency anemia, unspecified (principal); E43 Unspecified severe protein-calorie malnutrition; F44.4 Conversion disorder with motor symptom or deficit; M54.5 Low back pain; I10 Essential (primary) hypertension; M54.2 Cervicalgia; R63.4 Abnormal weight loss; Z68.1 Body mass index [BMI] 19.9 or less, adult; R97.0 Elevated carcinoembryonic antigen [CEA]; M54.6 Pain in thoracic spine; Z99.3 Dependence on wheelchair; R29.6 Repeated falls; Z88.6 Allergy status to analgesic agent; Z87.828 Personal history of other (healed) physical injury and trauma
CPT/HCPCS: 36415; 70450; 72125; 72128; 72131; 74177; 80048; 80053; 82378; 82607; 82746; 83540; 83550; 83615; 83735; 84100; 85007; 85025; 85044; 85060; 85610; 85651; 85730; 86850; 86900; 86901; 86920; 87081; 96361; 96372; 96374; 96375; 99291; J7030